=== PATIENT | male | born 1990 | race Caucasian/White ===

== ENCOUNTER 2018-01-01 15:29 | Emergency (ER) | payer SELFPAY ==
[2018-01-01] MEDS ORDERED: FAMOTIDINE 20 MG TAB ONE (16:32)
--- NOTE | 2018-01-01 16:41 | EDPHYS ---
Physician Documentation [facility] Name: Eb Pendleton Age: 27 yrs Sex: Male : 1990 Arrival Date: 01/01/2018 Time: 15:32 Bed 9 Private MD: ED Physician Hira Conley HPI: 01/01 16:02 This 27 yrs old Male presents to ER via Unassigned with complaints of kav Allergic Reaction. 16:31 The patient presents with "...tingling on face". Onset: The symptoms/episode kav began/occurred acutely, 6 hour(s) ago. Associated signs and symptoms: Pertinent positives: reports "...feeling very tired". Possible causes: coconut. At home the patient or guardian has treated the symptoms with Benadryl, 50 mg po x 1 dose. Severity of symptoms: At their worst the symptoms were very mild. The patient has experienced a previous episode, approximately 6 years ago. The patient has not recently seen a physician. c/o "...feeling very tired". Historical: - Allergies: 16:16 NKA; iw - Home Meds: 16:16 None [Active]; iw - PMHx: 16:16 None; iw - PSHx: 16:16 None; iw - Immunization history:: Adult Immunizations not up to date. - Social history:: Smoking status: Patient uses tobacco products, smokes one-half pack cigarettes per day. - Hospitalizations: : No recent hospitalization is reported. ROS: 16:33 Constitutional: Negative for fever, chills, and weight loss, Eyes: Negative for injury, kav pain, redness, and discharge, ENT: Negative for injury, pain, and discharge, Neck: Negative for injury, pain, and swelling, Cardiovascular: Negative for chest pain, palpitations, and edema, Respiratory: Negative for shortness of breath, cough, wheezing, and pleuritic chest pain, Abdomen/GI: Negative for abdominal pain, nausea, vomiting, diarrhea, and constipation, Back: Negative for injury and pain, : Negative for injury, bleeding, discharge, and swelling, MS/Extremity: Negative for injury and deformity, Skin: Negative for injury, rash, and discoloration, Neuro: Negative for headache, weakness, numbness, tingling, and seizure, Psych: Negative for depression, anxiety, suicide ideation, homicidal ideation, and hallucinations, Endocrine: Negative for neck swelling, polydipsia, polyuria, polyphagia, and marked weight changes, Hematologic/Lymphatic: Negative for swollen nodes, abnormal bleeding, and unusual bruising. 16:33 Allergy/Immunology: Positive for allergies, "...tingling on face", Negative for hayfever, hives, joint pain, pruritus, rash. Exam: 16:36 Constitutional: This is a well developed, well nourished patient who is awake, alert, kav and in no acute distress. Head/Face: Normocephalic, atraumatic. Eyes: Pupils equal round and reactive to light, extra-ocular motions intact. Lids and lashes normal. Conjunctiva and sclera are non-icteric and not injected. Cornea within normal limits. Periorbital areas with no swelling, redness, or edema. ENT: Nares patent. No nasal discharge, no septal abnormalities noted. Tympanic membranes are normal and external auditory canals are clear. Oropharynx with no redness, swelling, or masses, exudates, or evidence of obstruction, uvula midline. Mucous membranes moist. Neck: Trachea midline, no thyromegaly or masses palpated, and no cervical lymphadenopathy. Supple, full range of motion without nuchal rigidity, or vertebral point tenderness. No Meningismus. Chest/axilla: Normal chest wall appearance and motion. Nontender with no deformity. No lesions are appreciated. Cardiovascular: Regular rate and rhythm with a normal S1 and S2. No gallops, murmurs, or rubs. Normal PMI, no JVD. No pulse deficits. Respiratory: Lungs have equal breath sounds bilaterally, clear to auscultation and percussion. No rales, rhonchi or wheezes noted. No increased work of breathing, no retractions or nasal flaring. Abdomen/GI: Soft, non-tender, with normal bowel sounds. No distension or tympany. No guarding or rebound. No evidence of tenderness throughout. Back: No spinal tenderness. No costovertebral tenderness. Full range of motion. Skin: Warm, dry with normal turgor. Normal color with no rashes, no lesions, and no evidence of cellulitis. MS/ Extremity: Pulses equal, no cyanosis. Neurovascular intact. Full, normal range of motion. Neuro: Awake and alert, GCS 15, oriented to person, place, time, and situation. Cranial nerves II-XII grossly intact. Motor strength 5/5 in all extremities. Sensory grossly intact. Cerebellar exam normal. Normal gait. Psych: Awake, alert, with orientation to person, place and time. Behavior, mood, and affect are within normal limits. Vital Signs: 16:16 BP 150 / 88; Pulse 100; Resp 18 S; Temp 98.2; Pulse Ox 98% on R/A; Weight 73.03 kg; iw Height 5 ft. 6 in. (167.64 cm); Pain 0/10; 16:16 Body Mass Index 25.99 (73.03 kg, 167.64 cm) iw MDM: 16:17 Medical screening is not applicable. ka 16:36 Data reviewed: vital signs, nurses notes, lab test result(s), finger stick glucose. [facility] 01/01 16:29 Order name: FSBS; Complete Time: 16:38 kav Administered Medications: 16:38 Drug: Pepcid 20 mg Route: PO; la1 16:38 Follow up: Response: Medication administered at discharge. la1 Disposition: 18:04 Co-signature as Attending Physician, Hira Conley MD I agree with the assessment and kdr plan of care. Disposition: 01/01/18 16:41 Discharged to Home. Impression: Other adverse food reactions, not elsewhere classified. - Condition is Stable. - Discharge Instructions: Food Allergy, [id number]. - Medication Reconciliation Form, Thank You Letter, Antibiotic Education, Prescription Opioid Use, Work release form form. - Follow up: Garcia Pacheco; When: 1 - 2 days; Reason: Recheck today's complaints, Continuance of care, Re-evaluation by your physician. - Problem is new. - Symptoms have improved. - Notes: OTC Benadryl as needed and as directed Signatures: Hira Conley MD MD kdr Vern, Katherine, PHARMACIST AIDE PHARMACIST AIDE Alberta Cobos RN RN iw Attema, Lee, RN RN la1 Corrections: (The following items were deleted from the chart) 16:46 16:41 01/01/2018 16:41 Discharged to Home. Impression: Other adverse food reactions, la1 not elsewhere classified. Condition is Stable. Discharge Instructions: Food Allergy, [id number]. Forms are Medication Reconciliation Form, Thank You Letter, Antibiotic Education, Prescription Opioid Use. Follow up: Garcia Pacheco; When: 1 - 2 days; Reason: Recheck today's complaints, Continuance of care, Re-evaluation by your physician. Problem is new. Symptoms have improved. elliott
--- NOTE | 2018-01-01 16:41 | ER ---
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 Transition of care: patient was not received from another setting of care. Onset of symptoms was January 01, 2018. Initial Sepsis Screen: Does the patient meet any 2 criteria? No. Patient's initial sepsis screen is negative. Does the patient have a suspected source of infection? No. Patient's initial sepsis screen is negative. Care prior to arrival: None. 16:13 Method Of Arrival: Ambulatory iw 16:13 Acuity: BENJAMIN 5 iw Triage Assessment: 16:38 General: Appears in no apparent distress. Behavior is calm, cooperative. la1 Historical: - Allergies: 16:16 NKA; iw - Home Meds: 16:16 None [Active]; iw - PMHx: 16:16 None; iw - PSHx: 16:16 None; iw - Immunization history:: Adult Immunizations not up to date. - Social history:: Smoking status: Patient uses tobacco products, smokes one-half pack cigarettes per day. - Hospitalizations: : No recent hospitalization is reported. Screenin:38 Abuse screen: Denies threats or abuse. Nutritional screening: No deficits noted. la1 Tuberculosis screening: No symptoms or risk factors identified. Fall Risk None identified. Assessment: 16:38 Reassessment: Patient appears in no apparent distress at this time. Patient is alert, la1 oriented x 3, equal unlabored respirations, skin warm/dry/pink. Pain: Denies pain. Neuro: Level of Consciousness is awake, alert, obeys commands, Oriented to person, place, time, situation. Cardiovascular: Capillary refill Patient's skin is warm and dry. Vital Signs: 16:16 BP 150 / 88; Pulse 100; Resp 18 S; Temp 98.2; Pulse Ox 98% on R/A; Weight 73.03 kg; iw Height 5 ft. 6 in. (167.64 cm); Pain 0/10; 16:16 Body Mass Index 25.99 (73.03 kg, 167.64 cm) ED Course: 15:32 Patient arrived in ED. mr 16:02 Marlene Arnett FNP is [facility]. kav 16:02 Hira Conley MD is Attending Physician. kav 16:15 Triage completed. iw 16:16 Arm band placed on. iw 16:30 Stephen Boucher, GALLO is Primary Nurse. la1 16:38 Call light in reach. la1 16:38 No provider procedures requiring assistance completed. Patient did not have IV access la1 during this emergency room visit. 16:41 Garcia Pacheco MD is Referral Physician. kav Administered Medications: 16:38 Drug: Pepcid 20 mg Route: PO; la1 16:38 Follow up: Response: Medication administered at discharge. la1 Outcome: 16:38 Discharged to home ambulatory. la1 16:38 Condition: stable 16:38 Discharge instructions given to patient, Instructed on discharge instructions, follow up and referral plans. Demonstrated understanding of instructions, follow-up care. 16:41 Discharge ordered by . kav 16:46 Patient left the ED. la1 Signatures: Marlene Arnett FNP FNP kav Rivera, Maria Alberta Martin, RN GALLO Stephen Boucher RN RN la1
== END 2018-01-01 16:46 | disposition home or self-care (01) ==
LOC: ER 15:29
DX: T78.1XXA Other adverse food reactions, not elsewhere classified, initial encounter (principal); X58.XXXA Exposure to other specified factors, initial encounter; F17.210 Nicotine dependence, cigarettes, uncomplicated
CPT/HCPCS: 82962; 99283

== ENCOUNTER 2018-01-25 20:06 | Emergency (ER) | payer SELFPAY ==
[2018-01-25] MEDS ORDERED: LIDOCAINE 1% MPF 5 ML VIAL ONE (20:37)
--- NOTE | 2018-01-25 20:57 | EDPHYS ---
Physician Documentation [facility] Name: Eb Pendleton Age: 27 yrs Sex: Male : 1990 Arrival Date: 01/25/2018 Time: 20:06 Bed 19 Private MD: ED Physician Bruno Monterroso HPI: 01/25 20:52 This 27 yrs old Male presents to ER via Ambulatory with complaints of rn Laceration. 20:52 The patient has a laceration related to: falling occurred outdoors. The laceration(s) rn is(are) located on the left hand. Onset: The symptoms/episode began/occurred just prior to arrival. Associated signs and symptoms:. The patient has not experienced similar symptoms in the past. The patient has not recently seen a physician. [place] beach, [place] on jet[place] cut hand on rock/shell, no foreign body, tetanus no updated, mild bleeding, is right handed, cut on left hand.. Historical: - Allergies: 20:24 NKA; aj1 - Home Meds: 20:24 None [Active]; aj1 - PMHx: 20:24 None; aj1 - PSHx: 20:24 None; aj1 - Immunization history:: Last tetanus immunization: up to date. - Social history:: Smoking status: Patient uses tobacco products, smokes one-half pack cigarettes per day. - Ebola Screening: : Patient denies travel to an Ebola-affected area in the 21 days before illness onset. - Family history:: not pertinent. - Hospitalizations: : No recent hospitalization is reported. ROS: 20:52 Constitutional: Negative for fever, chills, and weight loss, MS/Extremity: + laceration rn left hand Exam: 20:52 Constitutional: This is a well developed, well nourished patient who is awake, alert, rn and in no acute distress. MS/ Extremity: Pulses equal, no cyanosis. Neurovascular intact. Full, normal range of motion. Equal circumference. 2 cm laceration, superficial to palmar base of left thumb, no bleeding, no foreign body. Small 1cm laceration to base of right foot, only through epidermis, no bleeding. Vital Signs: 20:24 BP 122 / 85; Pulse 88; Resp 20; Temp 98.6; Pulse Ox 98% ; Weight 77.56 kg; Height 5 ft. aj1 6 in. (167.64 cm); Pain 6/10; 20:24 Body Mass Index 27.60 (77.56 kg, 167.64 cm) aj1 Laceration: 20:52 Wound Repair of 2cm ( 0.8in ) subcutaneous laceration to left hand. Distal rn neuro/vascular/tendon intact. Anesthesia: Wound infiltrated with 3 mls of 1% lidocaine. Wound prep: Extensive cleansing by nurse, Wound irrigation by nurse, Wound explored, Copious irrigation. Skin closed with 3 4-0 Prolene using interrupted sutures and sterile technique. Dressed with Neosporin, 4x4's. Patient tolerated well. MDM: 20:28 Patient medically screened. rn 20:52 Differential diagnosis: superficial laceration. Data reviewed: vital signs, nurses rn notes, and as a result, I will discharge patient. Counseling: I had a detailed discussion with the patient and/or guardian regarding: the historical points, exam findings, and any diagnostic results supporting the discharge/admit diagnosis, the need for outpatient follow up, to return to the emergency department if symptoms worsen or persist or if there are any questions or concerns that arise at home. Response to treatment: the patient's symptoms have markedly improved after treatment, and as a result, I will discharge patient. Special discussion: I discussed with the patient/guardian in detail that at this point there is no indication for admission to the hospital. It is understood, however, that if the symptoms persist or worsen the patient needs to return immediately for re-evaluation. 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 Exp: ea 04/17/2020. Lot #: [id number]. } Route: IM; Site: left deltoid; 21:15 Follow up: Response: No adverse reaction ea Disposition: 01/25/18 20:56 Discharged to Home. Impression: Superficial laceration of left hand. - Condition is Stable. - Discharge Instructions: Laceration Care, Adult. - Prescriptions for Doxycycline Monohydrate 100 mg Oral Tablet - take 1 tablet by ORAL route every 12 hours for 10 days; 20 tablet. - Medication Reconciliation Form, Thank You Letter, Antibiotic Education, Prescription Opioid Use, Work release form form. - Follow up: Private Physician; When: 14 days; Reason: Staple/Suture removal. - Problem is new. - Symptoms have improved. Signatures: Elisa Jaramillo RN RN aj1 Bruno Monterroso MD MD rn Antunez, Elena, RN RN ea Corrections: (The following items were deleted from the chart) 20:55 20:52 Constitutional: This is a well developed, well nourished patient who is awake, rn alert, and in no acute distress. MS/ Extremity: Pulses equal, no cyanosis. Neurovascular intact. Full, normal range of motion. Equal circumference. 2 cm laceration, superficial to palmar base of left thumb, no bleeding, no foreign body. Small laceration to base of right foot, only through epidermis, no bleeding. rn 21:21 20:56 01/25/2018 20:56 Discharged to Home. Impression: Superficial laceration of left ea hand. Condition is Stable. Forms are Medication Reconciliation Form, Thank You Letter, Antibiotic Education, Prescription Opioid Use. Follow up: Private Physician; When: 14 days; Reason: Staple/Suture removal. Problem is new. Symptoms have improved. rn
--- NOTE | 2018-01-25 20:57 | ER ---
Nurse's Notes [facility] Name: Eb Pendleton Age: 27 yrs Sex: Male : 1990 Arrival Date: 01/25/2018 Time: 20:06 Bed 19 Private MD: Diagnosis: Superficial laceration of left hand Presentation: 01/25 20:23 Presenting complaint: Patient states: [place] and hit his hand aj1 on a rock. Transition of care: patient was not received from another setting of care. Complicating Factors: There are no complicating factors for this patient. Onset of symptoms was January 25, 2018 at 19:30. Risk Assessment: Do you want to hurt yourself or someone else? Patient reports no desire to harm self or others. Initial Sepsis Screen: Does the patient meet any 2 criteria? No. Patient's initial sepsis screen is negative. Does the patient have a suspected source of infection? No. Patient's initial sepsis screen is negative. Care prior to arrival: None. 20:23 Method Of Arrival: Ambulatory [facility] 20:23 Acuity: BENJAMIN 4 aj1 Triage Assessment: 20:24 General: Appears in no apparent distress. comfortable, Behavior is calm, cooperative, aj1 appropriate for age. Pain: Pain currently is 6 out of 10 on a pain scale. Injury Description: Laceration sustained to left hand is 0.5 to 2.5 cm long, was sustained 30-60 minutes ago. is bleeding no active bleeding noted. Historical: - Allergies: 20:24 NKA; aj1 - Home Meds: 20:24 None [Active]; aj1 - PMHx: 20:24 None; aj1 - PSHx: 20:24 None; aj1 - Immunization history:: Last tetanus immunization: up to date. - Social history:: Smoking status: Patient uses tobacco products, smokes one-half pack cigarettes per day. - Ebola Screening: : Patient denies travel to an Ebola-affected area in the 21 days before illness onset. - Family history:: not pertinent. - Hospitalizations: : No recent hospitalization is reported. Screenin:48 Fall Risk None identified. ea 21:10 Abuse screen: Denies threats or abuse. Nutritional screening: No deficits noted. ea Tuberculosis screening: No symptoms or risk factors identified. Assessment: 20:48 General: Appears in no apparent distress. Behavior is calm, cooperative. Pain: ea Complains of pain in left hand Pain does not radiate. Neuro: No deficits noted. Cardiovascular: No deficits noted. Patient's skin is warm and dry. Respiratory: No deficits noted. Airway is patent Respiratory effort is even, unlabored, Respiratory pattern is regular, symmetrical. GI: No signs and/or symptoms were reported involving the gastrointestinal system. : No signs and/or symptoms were reported regarding the genitourinary system. EENT: No signs and/or symptoms were reported regarding the EENT system. Derm: laceration to left hand. Musculoskeletal: Circulation, motion, and sensation intact. Injury Description: Laceration sustained to left hand is jagged, 0.5 to 2.5 cm long. 21:15 Reassessment: Patient and/or family updated on plan of care and expected duration. Pain ea level reassessed. Patient is alert, oriented x 3, equal unlabored respirations, skin warm/dry/pink. Discharge instruction given to patient, verbalized the understanding of instruction. Vital Signs: 20:24 BP 122 / 85; Pulse 88; Resp 20; Temp 98.6; Pulse Ox 98% ; Weight 77.56 kg; Height 5 ft. aj1 6 in. (167.64 cm); Pain 6/10; 20:24 Body Mass Index 27.60 (77.56 kg, 167.64 cm) aj1 ED Course: 20:06 Patient arrived in ED. ds1 20:24 Triage completed. aj1 20:24 Arm band placed on Patient placed in an exam room. aj1 20:27 Bruno Monterroso MD is Attending Physician. rn 20:47 Patti Damon RN is Primary Nurse. ea 20:48 Patient has correct armband on for positive identification. Bed in low position. Call ea light in reach. 21:15 No provider procedures requiring assistance completed. Patient did not have IV access ea during this emergency room visit. 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 Exp: ea 04/17/2020. Lot #: [id number]. } Route: IM; Site: left deltoid; 21:15 Follow up: Response: No adverse reaction ea Outcome: 20:56 Discharge ordered by . rn 21:21 Patient left the ED. ea 21:25 Discharged to home ambulatory. ea 21:25 Condition: improved 21:25 Discharge instructions given to patient, Instructed on discharge instructions, follow up and referral plans. medication usage, Demonstrated understanding of instructions, follow-up care, medications, Prescriptions given X 1. Signatures: Elisa Jaramillo RN RN aj1 Charlotte Godfrey ds1 Bruno Monterroso MD MD rn Antunez, Elena, RN RN ea
[2018-01-25] MEDS ORDERED: TETANUS & DIPHTHERIA TOX,ADULT 0.5 ML VIAL ONE (20:59)
== END 2018-01-25 21:21 | disposition home or self-care (01) ==
LOC: ER 20:06
PROC: 0JQK0ZZ Repair Left Hand Subcutaneous Tissue and Fascia, Open Approach (ICD-10-PCS; principal; 2018-01-25)
DX: S61.412A Laceration without foreign body of left hand, initial encounter (principal); W01.198A Fall on same level from slipping, tripping and stumbling with subsequent striking against other object, initial encounter; Y93.89 Activity, other specified; Y92.89 Other specified places as the place of occurrence of the external cause; Z23 Encounter for immunization; F17.210 Nicotine dependence, cigarettes, uncomplicated
CPT/HCPCS: 90714; 99283